=== PATIENT | male | born 1960 ===

== ENCOUNTER 2024-07-13 17:04 | Inpatient (IN) | payer OTHER, SELFPAY ==
[2024-07-13] VITALS (59 sets, daily range): BP systolic 77–155; BP diastolic 50–92; PULSE 48–72; RESP 15–16; TEMP 36.7; O2SAT 92–100
--- NOTE | 2024-07-13 17:00 | DI.CT_ITS ---
Exam(s) CT CHEST/ABD/PEL W CT THORACIC LUMBAR SPINE REC EXAM: CT CHEST/ABD/PEL W CLINICAL HISTORY: trauma, lower back and groin pain w mvmt. TECHNIQUE: Imaging Protocol: Axial computed tomography images with coronal and sagittal reformatted images were created and reviewed. Computer aided detection (CAD) was utilized. Axial, coronal and sagittal images of the thoracic and lumbar spine were reconstructed from the chest abdomen pelvic CT in bone and soft tissue algorithm. CONTRAST MATERIAL: Intravenous: Omnipaque 350 Contrast volume:100 ml Oral: / no COMPARISON: CT CT THORACIC LUMBAR SPINE REC from 07/13/2024 FINDINGS: CHEST: Pulmonary parenchyma: No consolidation. No dominant measurable mass. Tracheobronchial tree: No bronchiectasis. No mucous plugging.No bronchial wall thickening. Pleura: No effusion or pneumothorax. Mediastinum: Within normal limits. Pulmonary arteries: No visible emboli. Cardiovascular: The heart size is normal. There are mild coronary artery calcifications. No pericar dial effusion. Thoracic aorta non-dilated. Bones: Unremarkable for age. No lytic or blastic lesions.No compression fractures. No rib fracture s are identified. Soft tissues: Unremarkable. ABDOMEN and PELVIS: Liver: Normal density. No suspicious mass. Gallbladder and biliary tract: No evidence of stones or wall thickening. No biliary dilatation. Pancreas: Normal density, no abnormal calcifications or inflammatory process. Spleen: Normal. Kidneys: Normal size, contour and axis. No radiodense stones. No obstructive uropathy. No suspicious masses seen. Adrenal glands: No masses seen. Aorta: Abdominal portion non-dilated. Lymph nodes: Within normal limits. Soft tissues: Unremarkable. Bladder: Intact. Moderately distended. No wall thickening. Bowel: No obstruction or bowel wall thickening. Rectal anastomosis is unremarkable. Appendix marek l. Normal quantity of stool. Peritoneal cavity: No ascites. There is a is hematoma seen on the left side of the pelvis as well as inferior to the bladder. The produces a mild mass effect on the left lateral aspect of the bladder. No mesenteric inflammatory response. No free air. Bones: No evidence of lumbar compression fracture. There are fractures of the left transverse proces ses of L4 and L5. There is a vertically oriented nondisplaced fracture through the left sacrum. The re is a nondisplaced fracture of the left junction of the anterior acetabulum with pubic ramus. Ther e is a minimally displaced fracture of the left inferior pubic ramus. Mildly comminuted mildly displ aced fracture of the right inferior pubic ramus. Nondisplaced fracture of the right pubic symphysis. Reproductive organs: Unremarkable for age. IMPRESSION: No acute abnormality in the chest. Nondisplaced fractures of the left sacrum, bilateral ischiopubic rami. The left-sided pubic ramus fr acture extends to near the left acetabulum. Nondisplaced left L4 and L5 transverse process fractures. Moderate hematoma noted at the inferior and left side of the bladder. RADIATION DOSE DELIVERED: Total DLP DATA REPOSITORY: All CT scans at this facility are submitted to the National Radiology Data Registry (NRDR) Dose Index Registry (DIR) with the [employer] ([employer]). RADIATION OPTIMIZATION: All CT scans at this facility use at least one of these dose optimization te chniques: automated exposure control; mA and/or kV adjustment per patient size (includes targeted exa ms where dose is matched to clinical indication); or iterative reconstruction.
--- NOTE | 2024-07-13 17:12 | W.ED.GENAD ---
Discharge Plan Discharge Details Chief Complaint: Orthopedic Admit Date/Time: 07/13/24 21:40 Admit Provider: Alex Dangelo Attending Provider: Alex Dangelo Primary Care Provider: Nan,Local ED Provider: Susanna Barrera Discharge Data Discharge Date/Time-TO BE ENTERED AT DEPARTURE: 07/13/24 22:52 HPI General Date/Time Provider Initiated Documentation: 07/13/24 17:11. HPI Narrative: Domo is a 64 year old male who presents to the emergency department today for evaluation of tailbone/lower back/groin pain after fall. He reports he went over a bump while skiing, this caused him to go up in the air and he landed directly on his tailbone/left side. He denies striking the top half of his body or head during this incident. He is having pain in the groin area with movement of the legs or sitting/standing. No distal numbness/tingling, saddle anesthesia, change in bowel or bladder function, leg weakness, headache, neck pain, back pain, difficulty breathing, nausea/vomiting, upper extremity injury. Past medical history is significant for anticoagulation with baby aspirin daily, has history of heart failure, ASCVD, afib, and HTN. Physical exam remarkable for tenderness with palpation along inner thigh area/pelvis. No obvious instability noted with compression. Pain is elicited with movement of legs, sensation is grossly intact. No pain with compression of pelvis or palpation of pelvis. Easy work of breathing, lung sounds clear bilaterally. Normal heart sounds. He is unable to ambulate due to discomfort. D/dx includes but is not limited to: Fracture, contusion, hematoma, soft tissue injury, solid organ or hollow organ abdominal injury I independently interpreted the following tests: CBC notable for leukocytosis, 15.71. CMP reassuring. UA notable for 40 ketones, no blood. CT abdomen/pelvis performed, nondisplaced fractures of the left sacrum, bilateral pubic rami, and nondisplaced left L4 and L5 transverse process fractures noted. There is also a moderate hematoma noted at the inferior left side of the bladder. Consulted with trauma surgeon at [facility], recommends CT urogram for further evaluation. Discussed case with Dr. Dangelo, orthopedic surgeon at [facility]. As patient does not have blood in his urine, it is appropriate to defer CT to tomorrow, as he has met his 24-hour contrast load. Patient to be admitted to orthopedic surgery with consults as needed. While in the emergency department, Domo received fentanyl for pain control. Patient is agreeable with plan of care for admission to hospital. Related Data Home Medications ?Medication ?Instructions ?Recorded ?Confirmed aspirin 81 mg capsule 81 mg PO HS 07/13/24 07/13/24 atorvastatin 20 mg tablet 20 mg PO QHS 07/13/24 07/13/24 famotidine 20 mg tablet (Pepcid) 20 mg PO BID 07/13/24 07/13/24 flecainide 50 mg PO BID 07/13/24 07/13/24 losartan 25 mg PO HS 07/13/24 07/13/24 montelukast 10 mg PO HS 07/13/24 07/13/24 Allergies Allergy/AdvReac Type Severity Reaction Status Date / Time erythromycin base AdvReac Intermediate Other (See Verified 07/13/24 17:55 Comment) General Stated Complaint: Orthopedic AARON: 3 Review of Systems Narrative: See HPI Exam Const General: cooperative, no acute distress, well developed and well groomed Nutritional Appearance: average body habitus and well nourished Orientation: alert and oriented x3 HENMT Head: normal to inspection, no palpable skull fracture, normocephalic, atraumatic, no Soto's sign, no raccoon eyes and No periorbital ecchymosis Ears: hearing grossly normal bilaterally General nose exam: external nose normal Face and sinus: normal facial exam Mouth: oral mucosae normal Teeth and gingiva: dentition normal Throat: posterior oropharynx normal Eyes General: appearance normal, both eyes and all related structures Neck Neck: normal visual inspection, full ROM, no lymphadenopathy and trachea midline Chest Chest: normal inspection of the chest and normal palpation of entire chest wall Resp Effort & Inspection: normal respiratory effort and able to speak in complete sentences Auscultation: clear to auscultation bilaterally Cardio Rate: regular rate Rhythm: regular rhythm Pulses: dorsalis pedis present GI Inspection: normal to inspection, no abdominal wall ecchymosis and non-distended Palpation: soft, not firm and nontender Back/Spine/Pelvis Back: no CVA tenderness Cervical Spine: normal cervical lordosis and cervical ROM normal Thoracic/Lumbar Spine: thoracic and lumbar spine normal to inspection Skin General skin exam: no rashes or lesions noted Neuro General: patient alert, patient oriented x3, tone normal, moves all extremities and no focal motor deficits Cognition: normal cognition Speech: speech normal Gait: other (Unable to ambulate due to pain) Motor: muscle tone normal throughout and strength 5/5 throughout Sensory Exam: no sensory deficits noted Extrem Right upper extremity: normal to inspection and full ROM Left upper extremity: normal to inspection and full ROM Right lower extremity: hip/thigh Details: abnormal ROM (decreased ROM due to pain) Details: held in an abnormal fashion Details: in extension Left lower extremity: hip/thigh Details: abnormal ROM (Decreased ROM due to pain) Details: held in an abnormal fashion Details: in extension Course Vital Signs Vital signs: Vital Signs Temperature 36.7 C 07/13/24 17:04 Pulse 52 L 07/13/24 17:04 Respiratory Rate 15 07/13/24 17:04 Blood Pressure 149/77 H 07/13/24 17:04 Pulse Oximetry 96 07/13/24 17:04 Temperature 36.7 C 07/13/24 17:04 Pulse 52 L 07/13/24 17:04 Respiratory Rate 15 07/13/24 17:04 Blood Pressure 149/77 H 07/13/24 17:04 Blood Pressure Position Sitting 07/13/24 17:04 Pulse Oximetry 96 07/13/24 17:04 Oxygen Delivery Method Room Air 07/13/24 17:04 Oxygen Flow Rate 0 07/13/24 17:04 Medical Decision Making Imaging Data Radiologic Study: Radiologist's impression: Exam(s) CT CHEST/ABD/PEL W CT THORACIC LUMBAR SPINE REC EXAM: CT CHEST/ABD/PEL W CLINICAL HISTORY: trauma, lower back and groin pain w mvmt. TECHNIQUE: Imaging Protocol: Axial computed tomography images with coronal and sagittal reformatted images were created and reviewed. Computer aided detection (CAD) was utilized. Axial, coronal and sagittal images of the thoracic and lumbar spine were reconstructed from the chest abdomen pelvic CT in bone and soft tissue algorithm. CONTRAST MATERIAL: Intravenous: Omnipaque 350 Contrast volume:100 ml Oral: / no COMPARISON: CT CT THORACIC LUMBAR SPINE REC from 07/13/2024 FINDINGS: CHEST: Pulmonary parenchyma: No consolidation. No dominant measurable mass. Tracheobronchial tree: No bronchiectasis. No mucous plugging.No bronchial wall thickening. Pleura: No effusion or pneumothorax. Mediastinum: Within normal limits. Pulmonary arteries: No visible emboli. Cardiovascular: The heart size is normal. There are mild coronary artery calcifications. No pericardial effusion. Thoracic aorta non-dilated. Bones: Unremarkable for age. No lytic or blastic lesions.No compression fractures. No rib fractures are identified. Soft tissues: Unremarkable. ABDOMEN and PELVIS: Liver: Normal density. No suspicious mass. Gallbladder and biliary tract: No evidence of stones or wall thickening. No biliary dilatation. Pancreas: Normal density, no abnormal calcifications or inflammatory process. Spleen: Normal. Kidneys: Normal size, contour and axis. No radiodense stones. No obstructive uropathy. No suspicious masses seen. Adrenal glands: No masses seen. Aorta: Abdominal portion non-dilated. Lymph nodes: Within normal limits. Soft tissues: Unremarkable. Bladder: Intact. Moderately distended. No wall thickening. Bowel: No obstruction or bowel wall thickening. Rectal anastomosis is unremarkable. Appendix normal. Normal quantity of stool. Peritoneal cavity: No ascites. There is a is hematoma seen on the left side of the pelvis as well as inferior to the bladder. The produces a mild mass effect on the left lateral aspect of the bladder. No mesenteric inflammatory response. No free air. Bones: No evidence of lumbar compression fracture. There are fractures of the left transverse processes of L4 and L5. There is a vertically oriented nondisplaced fracture through the left sacrum. There is a nondisplaced fracture of the left junction of the anterior acetabulum with pubic ramus. There is a minimally displaced fracture of the left inferior pubic ramus. Mildly comminuted mildly displaced fracture of the right inferior pubic ramus. Nondisplaced fracture of the right pubic symphysis. Reproductive organs: Unremarkable for age. IMPRESSION: No acute abnormality in the chest. Nondisplaced fractures of the left sacrum, bilateral ischiopubic rami. The left-sided pubic ramus fracture extends to near the left acetabulum. Nondisplaced left L4 and L5 transverse process fractures. Moderate hematoma noted at the inferior and left side of the bladder. Quality:[facility] Related Social Needs: No Data to Display [facility] Social History Smoking/Tobacco Use Status: Never Smoking risk assessment performed?: Yes Alcohol Intake: current Alcohol Intake frequency: a few times a month Drug use: Never Substance use type: does not use Do you feel safe at home: Yes Do you feel safe in your relationship?: Yes
[2024-07-13 17:51] LABS: HCT 42.3 % (40.0-50.0); HGB 13.9 g/dL (13.5-17.5); MCH 31.1 pg (27.0-33.0); MCHC 32.9 % (32.0-36.0); MCV 95 fL (80-95); MPV 9.6 fL (8.0-11.0); Platelet Count 249 10^3/uL (130-400); RBC 4.47 10^6/uL (4.36-5.78); RDW 12.6 % (11.8-14.1); RDW-SD 43.7 fL; WBC 15.71 10^3/uL (4.4-10.8)
[2024-07-13 18:07] LABS: ALT 32 U/L (16-63); AST 24 U/L (15-37); Albumin 3.4 g/dL (3.4-5.0); Alkaline Phosphatase 67 U/L (46-116); Anion Gap 7.4 mmol/L (3-11); BUN 14 mg/dL (7-18); Bilirubin, Total 0.69 mg/dL (0.2-1.0); CO2 28.6 mmol/L (21.0-32.0); CREATININE 0.9 mg/dL (0.70-1.30); Calcium 8.5 mg/dL (8.5-10.1); Chloride 107 mmol/L (98-107); Estimated GFR 96.57 (mL/min/1.73m2); Glucose 112 mg/dL (74-106); Potassium 3.8 mmol/L (3.5-5.1); Sodium 143 mmol/L (136-145); Total Protein 6.5 g/dL (6.4-8.2)
[2024-07-13] MEDS: Normal Saline - Diluent 50 ML VIAL IJ (18:07)
[2024-07-13] MEDS: Omnipaque 350 MG/ML 100 ML BTL IJ (18:08)
[2024-07-13] MEDS: fentaNYL 100 MCG/2 ML VIAL 50 MCG IVP (18:37)
[2024-07-13] MEDS: Normal Saline 500 ML IV (19:15)
[2024-07-13 22:15] LABS: Bilirubin Negative (Negative); Blood Negative (Negative); Clarity Clear (Clear); Glucose Negative (Negative); Ketones 40 mg/dL (Negative); Leukocyte Esterase Negative (Negative); Nitrite Negative (Negative); Urobilinogen 0.2 mg/dL (Up to 0.2)
--- NOTE | 2024-07-13 22:18 | W.PC.ACHO ---
Registration Status: Primary Language: Preferred Language: ED Information & Data Chief Complaint Orthopedic 07/13/24 17:53 Chief Complaint Orthopedic 07/13/24 17:15 Other Complaint Nk/Back Pain 07/13/24 17:04 Triage Note Pain in tailbone after 07/13/24 17:04 falling onto it while skiing . Pain when sitting and standing. No neurological changes in legs. Most Recent Vital Signs Temperature 36.7 C 07/13/24 17:04 Pulse 61 07/13/24 21:50 Respiratory Rate 15 07/13/24 17:04 Blood Pressure 136/84 07/13/24 21:46 Blood Pressure Mean 101 07/13/24 21:46 Blood Pressure Position Sitting 07/13/24 17:04 Pulse Oximetry 100 07/13/24 21:50 Oxygen Delivery Method Room Air 07/13/24 17:04 Oxygen Flow Rate 0 07/13/24 17:04 Pain Level 4 07/13/24 18:37 Allergies erythromycin base Adverse Reaction (Intermediate, Verified 07/13/24 17:55) Other (See Comment) GI upset Precautions Isolation Standard precaution 07/13/24 17:53 Active Medications Generic Name Dose Route Start Last Admin Trade Name Freq PRN Reason Stop Dose Admin Iohexol 100 ml 07/13/24 18:15 07/13/24 18:08 Omnipaque 350 Mg/Ml 100 Ml Btl IJ 08/12/24 23:59 100 ml DIRECTED CHELSY Administration Sodium Chloride 50 ml 07/13/24 18:15 07/13/24 18:07 Normal Saline - Diluent 50 Ml Vial IJ 50 ml .FOR DI USE CHELSY Administration IV IV Catheter Type [Right Saline Lock Antecubital] IV Catheter Gauge [Right 20 Antecubital] Diagnostics 07/13/24 07/13/24 Range/Units 22:08 17:45 WBC 15.71 H (4.4-10.8) 10^3/uL RBC 4.47 (4.36-5.78) 10^6/uL Hgb 13.9 (13.5-17.5) g/dL Hct 42.3 (40.0-50.0) % MCV 95 (80-95) fL MCH 31.1 (27.0-33.0) pg MCHC 32.9 (32.0-36.0) % RDW 12.6 (11.8-14.1) % Plt Count 249 (130-400) 10^3/uL MPV 9.6 (8.0-11.0) fL Sodium 143 (136-145) mmol/L Potassium 3.8 (3.5-5.1) mmol/L Chloride 107 (98-107) mmol/L Carbon Dioxide 28.6 (21.0-32.0) mmol/L Anion Gap 7.4 (3-11) mmol/L BUN 14 (7-18) mg/dL Creatinine 0.9 (0.70-1.30) mg/dL Est GFR (CKD-EPI 2020) 96.57 (mL/min/1.73m2) Glucose 112 H (74-106) mg/dL Calcium 8.5 (8.5-10.1) mg/dL Total Bilirubin 0.69 (0.2-1.0) mg/dL AST 24 (15-37) U/L ALT 32 (16-63) U/L Alkaline Phosphatase 67 (46-116) U/L Total Protein 6.5 (6.4-8.2) g/dL Albumin 3.4 (3.4-5.0) g/dL Urine Color Pending Urine Clarity Pending Urine pH Pending Ur Specific [place] Pending Urine Protein Pending Urine Ketones Pending Urine Blood Pending Urine Nitrite Pending Urine Bilirubin Pending Urine Urobilinogen Pending Ur Leukocyte Esterase Pending Urine Glucose Pending Intake and Output - 24 Hour Total 07/13/24 17:01 thru 07/13/24 19:52 Intake Total 510 Balance 510 Weight 200 lb Intake: IV 510 Falls Risk Assessment History of Falls Admit Due to Fall 07/13/24 17:53 Contributing Factors No Factors 07/13/24 17:53 Ambulatory Aids Independent 07/13/24 17:53 Tubes/Lines With any additional score 07/13/24 17:53 Gait Evaluation W/any additional score 07/13/24 17:53 Cognition No cognitive impairment 07/13/24 17:53 Fall Total Score 65 07/13/24 17:53 Level of Risk High Risk 07/13/24 17:53 v v v v v v v v v Sending and/or Receiving Nurses: Please use comment section below to note any information pertinent to the patient hand-off not included above. Information / Comments: pt brought in by ambulance, skiing accident on rough trail-airborne, landed on left side. FX of sacrum, L4/L5 transverse process, hematoma. Got fentanyl in ED, did not like it and does not want it again. PRN oxy and dilaudid. Needs UA. VSS. HX AFib Report received from: Rodrigue Mcallister
[2024-07-13] MEDS: oxyCODONE 5 MG TAB PO (22:23)
[2024-07-13] MEDS: Lactated Ringers 1,000 ML 1000 ML IV (23:06)
[2024-07-13] MEDS: Normal Saline Flush 10 ML SYR (23:16)
[2024-07-14] VITALS (8 sets, daily range): BP systolic 99–131; BP diastolic 60–86; PULSE 58–65; RESP 14–19; TEMP 35.5–37.6; O2SAT 95–99
[2024-07-14] MEDS: Ketorolac 15 MG/ML VIAL IVP ×4 (00:12→23:46)
[2024-07-14] MEDS: Normal Saline Flush 10 ML SYR ×2 (00:13→08:26)
[2024-07-14] MEDS: Losartan 25 MG TAB PO ×2 (01:28→20:14)
[2024-07-14] MEDS: Atorvastatin 20 MG TAB PO ×2 (01:28→20:15)
[2024-07-14] MEDS: Aspirin 81 MG CHEW PO ×2 (01:29→20:14)
[2024-07-14] MEDS: Montelukast 10 MG TAB PO ×2 (01:29→20:14)
[2024-07-14] MEDS: Famotidine 20 MG TAB PO ×3 (01:29→20:14)
[2024-07-14] MEDS: oxyCODONE 5 MG TAB PO ×4 (01:35→23:45)
--- NOTE | 2024-07-14 05:09 | W.ORTHOCONSU ---
History of Present Illness History of Present Illness Chief Complaint: Ski Trauma Narrative: Apolinar is a 64-year-old who was skiing today. He went over a bump and went to the air. He landed awkwardly onto his buttock and left side with immediate pain and difficulty weightbearing. He is brought in by EMS services to the emergency department. He was unable to sit up unassisted and unable to mobilize. He reported pain about his pelvis but also into the medial aspect the left thigh. He denies numbness or tingling. He denies head trauma. He has been able to void on multiple occasions since arriving in the emergency department. Urinalysis did not show any blood. Consults Consult date: 07/13/24 Requesting physician: Susanna Damon Consult Reason Trauma with multiple pelvic fractures Assessment and Plan Assessment and plan (1) Fracture of transverse process of lumbar vertebra: Status: Acute (2) Fracture of sacrum: Status: Acute (3) Bilateral fracture of pubic rami: Status: Acute Assessment and plan: Apolinar is a 64-year-old male who suffered trauma while skiing today which resulted in multiple fractures. While there are bilateral pubic rami fractures he did land on the left side with the left sided sacral fracture which I think makes this most consistent with a lateral compression type I injury. I do not see any signs of diastases of the SI joint or incongruity of the pubic symphysis to suggest his unstable injury. However, given the mechanism of injury and the involvement of inferior superior pubic rami on both sides coupled with sacral ala fracture and the transverse process fractures, this has a chance to be less stable than expected for typical LC1 type injury. He did have a hematoma around the inferior and left side of the bladder adjacent to the pubis but he is able to urinate without difficulty and without blood. Serial hemoglobin can be checked. We will attempt mobilization and pain control. If he is unable to mobilize despite adequate pain control, then pelvic stabilization may need to be considered at a tertiary center. Initial attempts at transfer were declined due to capacity issues and therefore we will manage as much as we can here. I would recommend we start with elevating the head of bed first to 45 degrees and up to 60 degrees as tolerated. We should use oral medications as much as possible to minimize his pain. Physical therapy should work on sitting and then ambulating, at least mobilizing to a chair. This may take a few days to work on mobilization with adequate pain control but these injuries should be stable and tolerate a nonoperative protocol. If he is unable to mobilize me will reach out to tertiary center at that time. Review of Systems All systems reviewed & are unremarkable except as noted in HPI and below PFSH All Active Problems (Updated 07/14/24 @ 05:29 by Alex Dangelo MD) Fracture of transverse process of lumbar vertebra (Acute) Left L4, L5 Fracture of sacrum (Acute) Bilateral fracture of pubic rami (Acute) Hematoma (Acute) Closed fracture of transverse process of lumbar vertebra (Acute) Multiple pelvic fractures (Acute) Medical History GERD (gastroesophageal reflux disease) Hyperlipidemia Atrial fibrillation Social History Smoking/Tobacco Use Status: Never Smoking risk assessment performed?: Yes Alcohol Intake: current Alcohol Intake frequency: a few times a month Drug use: Never Substance use type: does not use Housing: house Do you feel safe at home: Yes Do you feel safe in your relationship?: Yes Exam Const General: cooperative, healthy appearing, comfortable, no acute distress, well developed and well groomed Nutritional Appearance: average body habitus Orientation: alert, awake and oriented x3 HENMT Head: normal to inspection, normocephalic and atraumatic Neck Neck: normal visual inspection, full ROM and supple Resp Effort & Inspection: normal respiratory effort, able to speak in complete sentences and no respiratory distress Back/Spine/Pelvis Cervical Spine: cervical ROM normal and No pain with cervical ROM Thoracic/Lumbar Spine: thoracic and lumbar spine normal to inspection and paraspinal tenderness (lower lumbar segments, left side) Pelvis: pain with lateral compression Sacrum: tenderness on the left Neuro Motor: strength 5/5 throughout (limited proximally in lower extremities by pain) Sensory Exam: no sensory deficits noted Results Last Vital Signs Temp 37.0 C 07/14/24 03:27 Pulse 64 07/14/24 03:27 Resp 19 07/14/24 03:27 BP 112/60 07/14/24 03:27 Pulse Ox 95 07/14/24 03:27 Labs 07/14/24 06:35 07/13/24 17:45 Labs: Laboratory Results - last 24 hr 07/13/24 07/13/24 17:45 20:10 WBC 15.71 H RBC 4.47 Hgb 13.9 Hct 42.3 MCV 95 MCH 31.1 MCHC 32.9 RDW 12.6 Plt Count 249 MPV 9.6 Sodium 143 Potassium 3.8 Chloride 107 Carbon Dioxide 28.6 Anion Gap 7.4 BUN 14 Creatinine 0.9 Est GFR (CKD-EPI 2020) 96.57 Glucose 112 H Calcium 8.5 Total Bilirubin 0.69 AST 24 ALT 32 Alkaline Phosphatase 67 Total Protein 6.5 Albumin 3.4 Urine Color Yellow Urine Clarity Clear Urine pH 6.0 Ur Specific [place] 1.010 Urine Protein Negative Urine Ketones 40 H Urine Blood Negative Urine Nitrite Negative Urine Bilirubin Negative Urine Urobilinogen 0.2 Ur Leukocyte Esterase Negative Urine Glucose Negative Imaging Imaging Studies: CT scan of the chest abdomen pelvis including spinal reconstructions shows no intrathoracic abnormality. There are multiple fractures about the pelvis and lower lumbar spine. There is nondisplaced fractures of the left L4 and L5 transverse processes. There is a slightly comminuted fracture about the left-sided pubic root near the anterior acetabulum with a minimally displaced fracture of the midportion of the inferior ramus on the left side. There are fractures of the superior and inferior pubic ramus on the right side. There is also a mildly comminuted fracture of the left sacrum but without significant displacement. There is no incongruity of the sacroiliac joints. There is no significant incongruity of the pubic symphysis. On the axial CT scans there is no apparent posterior anterior widening of the SI joint. There is blood seen around the inferior left side of the bladder adjacent to the anterior ring of the pelvis. No free air.
[2024-07-14 07:13] LABS: HCT 34.9 % (40.0-50.0); HGB 11.5 g/dL (13.5-17.5); MCH 31.2 pg (27.0-33.0); MCV 95 fL (80-95); Platelet Count 192 10^3/uL (130-400); RBC 3.69 10^6/uL (4.36-5.78); RDW 12.9 % (11.8-14.1); RDW-SD 44.7 fL; WBC 8.63 10^3/uL (4.4-10.8)
[2024-07-14 07:34] LABS: Anion Gap 9.6 mmol/L (3-11); BUN 13 mg/dL (7-18); CO2 26.4 mmol/L (21.0-32.0); Calcium 7.9 mg/dL (8.5-10.1); Chloride 106 mmol/L (98-107); Glucose 158 mg/dL (74-106); Potassium 3.6 mmol/L (3.5-5.1); Sodium 142 mmol/L (136-145)
[2024-07-14] MEDS: Acetaminophen 500 MG TAB 1000 MG PO ×3 (08:25→20:14)
--- NOTE | 2024-07-14 09:17 | INITIAL_ITS ---
Date of service: 07/14/24 Time of Service: 09:17 Care Management Initial Assmt Initial Assessment Reason for Hospitalization: pelvic fractures secondary to trauma Functional Status/Living Situation Patient Presentation: Apolinar was lying in bed when CM met with him. He was pleasant in interaction and engaged easily with CM. Apolinar had a skiing accident yesterday and fractured his pelvis. He shared that he does not have a lot of pain when he is in bed but he does when he tries to move or ambulate. His pain has been controlled with scheduled Ketorolac and PO Oxycodone. Apolinar is from [place], [place]. 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 Apolinar has 2 children who live close to him. When asked if the family is close, Apolinar responded reasonably. Apolinar does not receive any services and is independent in the community. Town of Residence: [place], [place] Resides with: Alone Significant Other/Family: Local (local to [facility]) Employment Status: Employed Instrumental Activities of Daily Living (ADLs): Independent Medications Medication Management: No Issues/Barriers identified Physical Functioning/Mobility Assistive Device: none at baseline needs a walker as a result of this injury Advance Directives Advance Directives: Do you have an Advance Directive: N 07/13/24 18:03 AD On File at [facility]: N 07/13/24 18:03 Date Asked 07/13/24 07/13/24 18:03 AD Date Reviewed COLST On File at [facility] COLST Date Scanned Code Status Resuscitation Status Full Code Portal Pt does not currently have a portal and education provided: No Portal Education: Other (lives out of state) Insurance Coverage/Financial Issues Insurance: Diversified Administration Care Team Visit Care Team Role Provider Type Local No Primary Care Provider NON-[facility] STAFF PHYSICIAN InPatient Mickey Delarosa Other Providers OTHER Susanna Damon Emergency Provider NURSE PRACTITIONER Alex Dangelo MD Admit Provider [facility] STAFF PHYSICIAN Attending Provider Discharge Potential Discharge Needs: Surgical F/U Appt Anticipated Barriers to Discharge: Medical Status Patient/Family Education Needs: Review discharge instructions, discuss Ask Me Three Transportation: Private vehicle Plan: Anticipate Apolinar will be discharged home with no new services. He will follow up with his community providers and transport via private vehicle with a friend. CM will follow and assess for discharge needs. Social Determinants of Health Screening Social Determinants of Health last assessed: 07/14/24 Will the Patient Participate in the Screening?: Yes Do you worry about having a steady place to live?: no Problems where you live: no known problems In the past 12 months, have you had to go without electric, gas, oil or water in your home?: no Have you or anyone in your house had to go without enough food to eat?: no Has lack of transportation kept you from medical appointments or from doing things needed for daily living?: no Has anyone in your life made you feel unsafe or unsupported?: no How hard is it for you to pay for the very basics like food, housing, medical care, and heating? Would you say it is:: Not hard at all Do you want help finding or keeping work or a job?: I do not need or want help If for any reason you need help with day-to-day activities such as bathing, preparing meals, shopping, managing finances, etc., do you get the help you need?: I don?t need any help How often do you feel lonely or isolated from those around you?: Never Do you speak a language other than Rwandan at home?: No Does the patient want assistance with any of the above?: No PFSH All Active Problems (Updated 07/14/24 @ 05:29 by Alex Dangelo MD) Fracture of transverse process of lumbar vertebra (Acute) Left L4, L5 Fracture of sacrum (Acute) Bilateral fracture of pubic rami (Acute) Hematoma (Acute) Closed fracture of transverse process of lumbar vertebra (Acute) Multiple pelvic fractures (Acute) Medical History GERD (gastroesophageal reflux disease) Hyperlipidemia Atrial fibrillation Social History Smoking/Tobacco Use Status: Never Smoking risk assessment performed?: Yes Alcohol Intake: current Alcohol Intake frequency: a few times a month Drug use: Never Substance use type: does not use Housing: house Do you feel safe at home: Yes Do you feel safe in your relationship?: Yes
--- NOTE | 2024-07-14 10:40 | IN_ITS ---
PT Notes Visit Reasons: Trauma - Pelvic Fractures Physical Therapy Inpatient Initial Evaluation Date: 07/14/2024 Referring Doctor: Alex Dangelo MD PT Orders: PT CONSULT: Safety consult for D/C. Bilateral pelvic fractures, sacral fractures, WBAT with walker Precautions: Fall. Standard. WBAT on B LE with AD. Patient Profile/Admitting Diagnosis: Patient presented to the ED on 07/13/2024 due to low back, tailbone, and groin pain sustained from a skiing accident. CT scan of of the chest/abdomen and pelvis showed fractures of the left transverse processes of L4 and L5; vertically oriented non-displaced fracture through the left sacrum; non- displaced fracture of the left junction of the anterior acetabulum with pubic ramus.; minimally displaced fracture of the left inferior pubic ramus; mildly comminuted mildly displaced fracture of the right inferior pubic ramus; non- displaced fracture of the right pubic symphysis. Dr. Dangelo was consulted and ordered mobilization as tolerated with WBAT on B LE using FWW. PMHX: Unremarkable Social History/Home Situation: Independent with all aspects of ADLs without any assistive devices prior to admission. Equipment Owned/DME: None previously Subjective: Pain shot up to 8-9/10 with weight bearing during short walk from L side of bed to the bedside chair with walker. Denied headache, chest pain nad lightheadedness throughout session. Objective: General Observation: Movement highly guarded because of pain in pelvis. Mental Status: Alert and oriented as to person, place, time, and purpose. Able to pay attention, focus, and respond appropriately. Pain: 6-9/10 with movement and weight bearing Vital Signs: Closley monitored by nursing staff ROM: Right Lower Extremity: Hip flexion up to 90 degrees with heel slide while in supine. Hip abduction about 10 degrees. Knee flexion up to 80 degrees with heel slide in supine. Ankle dorsiflexion WFL. Ankle plantarflexion WFL. Movement increased pain to 7-8/10 at hip and pelvic areas. Left Lower Extremity: Hip flexion up to 90 degrees with heel slide while in supine. Hip abduction about 10 degrees. Knee flexion up to 80 degrees with heel slide in supine. Ankle dorsiflexion WFL. Ankle plantarflexion WFL. Movement increased pain to 7-8/10 at hip and pelvic areas. Strength: Right Lower Extremity: Hip flexors 3-/5. Hip abductors 3-/5. Knee flexors 3-/5. Knee extensors 3-/5. Ankle dorsiflexors 4-/5. Ankle plantarflexors 4-/5. Left Lower Extremity: Hip flexors 3-/5. Hip abductors 3-/5. Knee flexors 3-/5. Knee extensors 3-/5. Ankle dorsiflexors 4-/5. Ankle plantarflexors 4-/5. Bed Mobility/Transfers: Moderate cueing provided for use of B hands as needed for support, movement sequence, AD management, and posture to reduce fall risk and minimize pain report Rolling with minimal assist L sidelying to sit minimal assist of 2 Stand to sit with contact guard assist of 2 Bed to chair minimal assist of 1 and stand by assist of another for safety Gait: Unable to lift either foot to advance forward. Able to slide foot ever so slow ly each time from left side of bed to his bed side chair on the other side. Balance: Static Sitting: Fair Dynamic Sitting: Fair Static Standing: Fair Dynamic Standing: Fair Special Tests: Mobility Limitations Standardized Measure [facility] AM-PAC 6 clicks Basic Mobility Inpatient Short Form: Raw Score: 11 CMS Score: 72% deficit Informed Consent/Education: Patient was instructed in purpose of PT consult and plan of care. Agreeable to proceed with established PT POC to achieve personal goals. ASSESSMENT: Patient was very much limited by pain but with pre-medication, increase of head of bed to at least 45 degrees, and with use of side rail patient was able to slowly move from edge of bed and walk to bedside chair with pain report as high as 8-9/10 every time he tried to lift each extremity forward. Patient was able to slowly slide each foot forward and us the walker to minimize loading onto low back and pelvis. Sitting tolerance limited at this time, unsure if patient can tolerate the drive back to [place] without undue pain. Patient was fitted and provided with walker for room use. Will process walker to take home once discharge is ready. Patient presents with clinical signs and symptoms consistent with current/admitting diagnoses that have resulted to mobility limitations, gait instability, generalized weakness, and overall ADL decline as demonstrated by the following impairment level findings: 1. Decreased strength to B hips and knees major muscle groups 2. Impaired sitting/standing balance 3. Impaired activity tolerance 4. Limitation of joint range of motion in B hips 5. Pain in low back, B hips and pelvis Impairments are contributing to the following functional limitations: 1. Decline in bed mobility skills 2. Decline in transfer skills 3. Difficulty with ambulation without assistive device and physical assistance 4. Increased completion time for mobility ADL performance 5. Increased risk for falls 6. Difficulty with managing steps alone safely Patient is assessed as a 48776 moderate complexity based on the following: History: 64-year-old male with past medical history as indicated above Examination: Demonstrable impairment in strength, balance, and mobility level with underlying impairments and functional limitations as exhibited above as well as deficit score of 72% utilizing the [facility] Mobility Inpatient Short Form Presentation: Evolving Decision Makin moderate complexity Goals: Goals X1 week 1. Supine-Sit independent 2. Sit-Supine independent 3. Sit-Stand independent 4. Stand-Sit independent with FWW 5. Bed-Chair independent with FWW 6. Chair-Bed independent with FWW 7. Independent gait on level surface with use of FWW for at least 150 feet without report of pain nor dyspnea 8. Independent stair negotiation while holding onto B rails for at least 5 steps without report of pain nor dyspnea 9. Independent with home exercise program 10. Good static and dynamic standing balance/tolerance Plan of Care/Treatment Plan: 1-2x/day, 7 days/week x 1 week. Plan of care has been reviewed with the INDIAN TRADER providing the service under Physical Therapy direction. Initiate Physical Therapy intervention for pain management as needed, strengthening, bed mobility, transfers, gait, stairs, balance training, and use of assistive device. --Pre-medicate for pain for all sessions, coordinate with nurse DISCHARGE RECOMMENDATIONS: [] Home with no services [] [] Home with services [specify] [] Home with outpatient PT [] [] SNF for continued rehabilitation [] [] Heat Treatment Technician Care [] [] SNF versus LTC based on ability to participate and progress [] [X] Short-term term SNF vs PT based on progress towards goals TREATMENT CODE/TIME: 10155 x 20 minutes for 1 unit, 73140 x 29 minutes for 2 units (10:40-11:29). Thank you for the opportunity to participate in the care of this patient. Elisa Castro PT, DPT, CLT [facility] [place], [place]
--- NOTE | 2024-07-14 13:44 | PHA.REVIEW2 ---
Pharmacy Admission Review Admission Clinical Review Admission Pharmacy Review: Fracture of transverse process of lumbar vertebra (Acute) Fracture of sacrum (Acute) Bilateral fracture of pubic rami (Acute) Hematoma (Acute) Closed fracture of transverse process of lumbar vertebra (Acute) Multiple pelvic fractures (Acute) erythromycin base Adverse Reaction (Intermediate, Verified 07/13/24 17:55) Other (See Comment) Resuscitation Status Full Code Height 5 ft 10 in Weight 96.6 kg Pharmacy Admission Review Renal Dosing Renal Dosing: BUN 13 mg/dL (7-18) 07/14/24 06:35 Creatinine 1.0 mg/dL (0.70-1.30) 07/14/24 06:35 Medications needing adjustments: Reviewed (CrCl 89.3 ml/min) List of meds needing interventions: Current medications are okay Anticoagulation Anticoagulation: Hgb 11.5 g/dL (13.5-17.5) L D 07/14/24 06:35 Hct 34.9 % (40.0-50.0) L 07/14/24 06:35 Plt Count 192 10^3/uL (130-400) 07/14/24 06:35 Creatinine 1.0 mg/dL (0.70-1.30) 07/14/24 06:35 DVT Prophylaxis: Reviewed (none at this time - per provider patient had hematoma in pelvis but is rechecking Hgb at 1600) Opiate Usage Evaluate Pain Scale/Pains Meds: Reviewed (hydromorphone 1mg IVP PRN - no doses given and oxycodone 5-10mg PO q3h PRN - 25mg / 24 hrs) Scheduled Bowel Reg ordered if on Opiates?: No (PRN docusate) Relevant Labs Relevant Labs: Sodium 142 mmol/L (136-145) 07/14/24 06:35 Potassium 3.6 mmol/L (3.5-5.1) 07/14/24 06:35 Chloride 106 mmol/L (98-107) 07/14/24 06:35 Electrolytes, C-Reactive P, ESR: Reviewed Cardiac Review BP, HR, EF%: Reviewed (BP WNL, HR 58) List meds needing interventions: Has order for flecainide 50mg BID and losartan 25mg daily QTc Review QTc: Reviewed (No EKG on file) IV to PO Switch IV Medications: Reviewed (hydromorphone and ketorolac) Home Meds Home Med List reviewed: Reviewed Current Meds Current Medication Order Review: Intervened Comments: Added IV admission order set
[2024-07-14 16:04] LABS: HGB 12.1 g/dL (13.5-17.5)
--- NOTE | 2024-07-14 16:34 | PTTR_ITS ---
PT Notes Visit Reasons: Trauma - Pelvic Fractures Physical Therapy Inpatient Treatment Note Date: 07/14/2024 Precautions: Fall. Standard. WBAT on B LE with AD. Subjective: Pain shot up to 6-7/10 with weight bearing during short walk from L side of bed to the bedside chair with walker. Denied headache, chest pain nad li ghtheadedness throughout session. Objective: General Observation: Movement highly guarded because of pain in pelvis. Mental Status: Alert and oriented as to person, place, time, and purpose. Able to pay attention, focus, and respond appropriately. Pain: 6-9/10 with movement and weight bearing Vital Signs: Closley monitored by nursing staff Bed Mobility/Transfers: Moderate cueing provided for use of B hands as needed for support, movement sequence, AD management, and posture to reduce fall risk and minimize pain report R sidelying to sit moderate assist Stand to sit with contact guard assist Bed to chair minimal assist using FWW Gait: Unable to lift either foot to advance forward. Able to slide foot ever so slowly each time from right side of bed to bed side chair. Backing up appeared easier. Pain tolerable throughout. Balance: Static Sitting: Fair Dynamic Sitting: Fair Static Standing: Fair Dynamic Standing: Fair THERA EX: Initiated isometric exercises for gluteal and quads muscles prior to both attempts at moving out of bed, 5sh x 10 to minimize muscle guarding Worked on slow posterior pelvic tilting x while in supine to relax B hams ASSESSMENT: Patient was given with 5 mg Oxycodone for this session as the 10 mg given for PT morning session caused his blood pressure to go soft after he was done with PT session. Patient appeared to be more able to move the R LE better compared to this morning and still was very guarded with moving L LE as hip flexion in antigravity position/upright was still very limited due to pain. Patient was very much limited by pain but with pre-medication, increase of head of bed to at least 45 degrees, and with use of side rail patient was able to slowly move from edge of bed and walk to bedside chair with pain report as high as 8-9/10 every time he tried to lift each extremity forward. Patient was able to slowly slide each foot forward and us the walker to minimize loading onto low back and pelvis. Sitting tolerance limited at this time, unsure if patient can tolerate the drive back to [place] without undue pain. Patient was fitted and provided with walker for room use. Will process walker to take home once discharge is ready. Plan of Care/Treatment Plan: 1-2x/day, 7 days/week x 1 week. Plan of care has been reviewed with the CERAMIC RESEARCH ENGINEER providing the service under Physical Therapy direction. Initiate Physical Therapy intervention for pain management as needed, strengthening, bed mobility, transfers, gait, stairs, balance training, and use of assistive device. --Pre-medicate for pain for all sessions, coordinate with nurse DISCHARGE RECOMMENDATIONS: [] Home with no services [] [] Home with services [specify] [] Home with outpatient PT [] [] SNF for continued rehabilitation [] [] Kettle Skimmer Care [] [] SNF versus LTC based on ability to participate and progress [] [X] Short-term term SNF vs PT based on progress towards goals TREATMENT CODE/TIME: 75673 x 25 minutes for 2 units (15:45-16:10).
[2024-07-14] MEDS: Normal Saline Flush 10 ML SYR IVP (20:18)
--- NOTE | 2024-07-15 | DI.RAD_ITS ---
Exam(s) XR PELVIS W OBLIQUES 3V EXAM: XR PELVIS W OBLIQUES 3V CLINICAL HISTORY: evaluate post-mobilization. TECHNIQUE: 2D digital imaging was performed. COMPARISON: CT CT CHEST/ABD/PEL W from 07/13/2024 FINDINGS: 3 views Again noted are the fractures of the bilateral superior and inferior pubic rami, as seen on recent CT scan. On the left side the fracture extends to the level of the acetabulum. There is also a nondisplaced fractures seen in the superior aspect of the left side of the sacrum, as was also evident on the recent CT scan. There is no diastasis of the sacroiliac joint. There are no obvious degenerative changes in the hip joints. Femoral heads and neck are intact. IMPRESSION: Bilateral pelvic fractures as described above, corresponding to what was seen on CT scan of . DATA REPOSITORY: RADIATION DOSE DELIVERED:
[2024-07-15 02:59] VITALS: BP 118/70; PULSE 57; RESP 19; TEMP 37.1; O2SAT 91
[2024-07-15 07:31] VITALS: BP 136/81; PULSE 60; RESP 15; TEMP 37.4; O2SAT 96
[2024-07-15] MEDS: Acetaminophen 500 MG TAB 1000 MG PO ×3 (07:56→19:34)
[2024-07-15] MEDS: oxyCODONE 5 MG TAB PO ×4 (07:56→18:58)
[2024-07-15] MEDS: Famotidine 20 MG TAB PO ×2 (07:57→19:34)
[2024-07-15] MEDS: Ketorolac 15 MG/ML VIAL IVP ×2 (08:01→16:59)
[2024-07-15] MEDS: Enoxaparin 40 MG/0.4 ML SYR SC (08:01)
--- NOTE | 2024-07-15 09:04 | PDOC.CMDIS ---
Date of service: 07/15/24 Time of Service: 09:05 LACE Index Scoring Tool Questions: Length of Stay (in days): 2 Was the patient admitted via the E.D.?: Yes E.D. Visits: 1 Answers: Total Score: 6 Risk of Readmission: Low Risk Care Management Discharge Plan Reason for Hospitalization: fractured pelvis Discharge Plan: Apolinar will be discharged home with no new services. He will follow up with his community providers in [place] and transport via private vehicle with a friend. Patient/Family Education Needs: review of discharge instructions, limitations, follow up plan and discuss Ask Me Three SDOH Health Related Social Needs: Health related social needs housing instability, housed, with risk of homelessness (Z59.811)
[2024-07-15 11:01] VITALS: BP 115/77; PULSE 58; RESP 15; TEMP 37; O2SAT 98
--- NOTE | 2024-07-15 11:46 | PTTR_ITS ---
PT Notes Visit Reasons: Trauma - Pelvic Fractures Physical Therapy Inpatient Treatment Note Date: 07/15/2024 Precautions: Fall. Standard. WBAT on B LE with AD. Subjective: Willing to try get out of bed and walk to bedside chair, distraught about one caregiver to help him get out of bed so MIMA Asencio was recruited in for assistance. Objective: General Observation: Movement highly guarded because of pain in pelvis. Mental Status: Alert and oriented as to person, place, time, and purpose. Able to pay attention, focus, and respond appropriately. Pain: 7-8/10 with supine to sit Vital Signs: Closely monitored by nursing staff Bed Mobility/Transfers: Moderate cueing provided for use of B hands as needed for support, movement sequence, AD management, and posture to reduce fall risk and minimize pain report L side lying to sit minimal assist of 2 due to pain Stand to sit with stand by assist with FWW Bed to chair stand by assist with FWW Gait: Today, patient is more able to minimally plantarflex and slide R foot forward with L foot creeping forward. With L foot suspended/hanging and L knee bent patient is able to minimally hop forward, increasing speed of movement. Covered distance from L side of bed to bedsside chair covering about 15 feet and in the afternoon was able to walk 50 feet from chair to the hallway using his FWW with minimal PF on R side during each step and with L foot mostly non-weight bearing to partial weight bearing, heavy use of B hands due to pain level. Balance: Static Sitting: Good Dynamic Sitting: Fair Static Standing: Fair Dynamic Standing: Fair THERA EX: Encouraged sometric exercises for gluteal and quads muscles prior to both attempts at moving out of bed, 5sh x 10 to minimize muscle guarding Worked on slow posterior pelvic tilting x while in supine to relax B hams ASSESSMENT: Slowly improving gait pattern using FWW. Supine to sit movement transition s till cause pain but once up, patient is able to slowly make his way on level surface. Due to multiple sites of fracture of pelvis on B sides, sacrum and TP of L4 and L5, multiple muscle pulls during movement transitions of roll to supine to sit cause much discomfort. Has trialled multiple techniques with patient which he can use on his own at home to minimize pain relief. Plan of Care/Treatment Plan: 1-2x/day, 7 days/week x 1 week. Plan of care has been reviewed with the LANDSCAPING AND GROUNDSKEEPING LABORER providing the service under Physical Therapy direction. Initiate Physical Therapy intervention for pain management as needed, strengthening, bed mobility, transfers, gait, stairs, balance training, and use of assistive device. --Pre-medicate for pain for all sessions, coordinate with nurse DISCHARGE RECOMMENDATIONS: [] Home with no services [] [] Home with services [specify] [] Home with outpatient PT [] [] SNF for continued rehabilitation [] [] Sea Captain Care [] [] SNF versus LTC based on ability to participate and progress [] [X] Short-term term SNF vs PT based on progress towards goals TREATMENT CODE/TIME: Session 1-- 61740 x 29 minutes for 2 units (11:46-12:15). Session 2--41366 x 15 minutes for 1 unit, 65109 x 15 minutes for 1 unit (16:53-17:23).
--- NOTE | 2024-07-15 13:57 | CHAPLAIN ---
Domo was up in a chair, visiting with a friend when I stopped in. He is here as an ortho patient following a fall while skiing. According to the Care Management notes, Domo went over a bump and then landed on his tailbone causing fractures. Domo was pleasant and inquired about getting ashes today ([place] Saturday). I let him know that Rev. Shahid Galvin will be in to offer ashes in our chapel this afternoon and I'll see if she can go to his room to offer ashes to him.
--- NOTE | 2024-07-15 15:53 | PGE_ITS ---
Date of Service Date of service: 07/15/24 Time of Service: 15:10 Assessment and Plan Assessment and plan (1) Fracture of transverse process of lumbar vertebra: Status: Acute (2) Fracture of sacrum: Status: Acute (3) Bilateral fracture of pubic rami: Status: Acute Assessment and plan: Apolinar is a 64-year-old male who has a significant fracture of his pelvis involving both superior and inferior pubic rami and the left side extending adjacent to the acetabulum, pubic root. There is also a left sacral ala fracture and left-sided L4 and L5 transverse process fractures. Repeated x-rays today do not show any significant change in the position of the fragments and more importantly do not show any diastases of the SI joint, particular on the left side. He has been working with physical therapy and with nursing and is making some progress although still limited in his ability to mobilize. He has utilize pain medication now requiring 10 mg of oxycodone. This seems to be a working regimen. I have continued with the ketorolac IV. He has not use any IV pain medication doses today. We will continue to work with physical therapy. He is making progress and thus I do not think he needs any further intervention. Hopefully will be able to discharge to home within the next few days. (4) Hematoma: Status: Acute Assessment and plan: Recheck on hemoglobin was stable and therefore we will continue to follow this clinically without the need for any further imaging studies at this time. Subjective Subjective Interval history since last seen: Apolinar reports still having significant pain with mobilization. He has made some progress and that he only needs 1 assist but he still requiring assistance in order to mobilize. He is unable to stand on his left side and take a step thus leading him shuffling the right foot. He has been working on some exercises in the chair in the bed and these have not hurt too bad. He is requiring 10 mg of oxycodone to assist with mobilization. Hemoglobin checked yesterday afternoon was stable. He had x-rays this morning. No new symptoms. Voiding spontaneously without any blood. Passing flatus, no BM. When he does have pain, he localizes this to the left side of the sacrum and the left side of the lower lumbar spine. Exam Narrative Exam Narrative: Sitting up in the chair. No acute distress. Alert and orient x 3. Evaluation of both lower extremity shows sensation intact to light touch of the femoral and sciatic nerve distributions. He has no significant pain with passive internal and external rotation of both hips as well as passive flexion of both hips. He is able to demonstrate active hip flexion as well as active motion of the hips although with more pain on the left side and the right side. Most this pain is felt in the medial perineal region. Objective Last Vital Signs Temp 37 C 07/15/24 11:01 Pulse 58 L 07/15/24 11:01 Resp 15 07/15/24 11:01 BP 115/77 07/15/24 11:01 Pulse Ox 98 07/15/24 11:01 Laboratory Results - last 24 hr 07/14/24 15:55 Hgb 12.1 L Hct 37.0 L Objective Narrative Objective Narrative: X-ray of the pelvis was performed this morning and reviewed. This shows the previously mentioned fractures. There is some mild diastases of the fracture of the left superior pubic ramus extending to the root adjacent to the acetabulum. However, no involvement of the acetabulum itself. No apparent posterior anterior column involvement. The sacral fracture is difficult to appreciate although on the left external oblique image it is seen at the superior aspect of the lateral third of the sacrum. PAWSS Have you Been Recently Intoxicated or Drunk Within the Last 30 days?: No Have you Ever Experienced Previous Episodes of Alcohol Withdrawal?: No Have you ever Experienced Withdrawal Seizures?: No Have you ever Experienced Delirium Tremens(DT)s?: No Have you ever undergone Alcohol Rehabilitation Treatment (i.e, inpt ot outpatient treatment programs)?: No Have you ever Experienced Blackouts?: No Have you ever Combined Alcohol with other Downers within the last 90 days?: No Have you ever Combined Alcohol with any other Substance of Abuse during the last 90 days?: No Positive Blood Alcohol level on Presentation? [PCS.BAL]: No Evidence of Increased Autonomic Activity (i.e. HR>120, tremor, sweating, agit ation, nausea)?: No Result: 0 Time Spent with Patient Time Spent with Patient: 25-34 minutes Time was spent: preparing to see the patient(eg.review tests), obtaining and/or reviewing separately otained hiistory, ordering medications,tests, procedures and counseling the patient
[2024-07-15 15:54] VITALS: BP 132/83; PULSE 57; RESP 15; TEMP 36.8; O2SAT 100
--- NOTE | 2024-07-15 16:14 | PDOC.CMPRO ---
Date of service: 07/15/24 Time of Service: 16:14 Care Management Progress Note Progress Note Text Progress Note Text: Apolinar was sitting up in a chair when CM met with him. He remains in good spirits and has been able to work with PT. While he is making progress, he is unable to get up on his own and cannot stand on his left side and take a step. His pain is controlled with Oxycodone and scheduled IV Ketorolac. Repeat xrays done this morning indicate that his fractures are stable. Per Dr. Dangelo, Apolinar will likely be ready for discharge sometime within the next few days. He is working on completing the necessary paperwork for FMLA and short term disability. Discharge Potential Discharge Needs: Surgical F/U Appt Anticipated Barriers to Discharge: Medical Status Patient/Family Education Needs: Review discharge instructions, discuss Ask Me Three Transportation: Private vehicle Plan: Anticipate Apolinar will be discharged home, possibly with with new home health services for PT. He will follow up with his community providers and transport via private vehicle with a friend. CM will follow and assess for discharge needs. Social Determinants of Health Screening Social Determinants of Health last assessed: 07/15/24 Will the Patient Participate in the Screening?: Yes Do you worry about having a steady place to live?: no Problems where you live: no known problems In the past 12 months, have you had to go without electric, gas, oil or water in your home?: no Have you or anyone in your house had to go without enough food to eat?: no Has lack of transportation kept you from medical appointments or from doing things needed for daily living?: no Has anyone in your life made you feel unsafe or unsupported?: no How hard is it for you to pay for the very basics like food, housing, medical care, and heating? Would you say it is:: Not hard at all Do you want help finding or keeping work or a job?: I do not need or want help If for any reason you need help with day-to-day activities such as bathing, preparing meals, shopping, managing finances, etc., do you get the help you need?: I don?t need any help How often do you feel lonely or isolated from those around you?: Never Do you speak a language other than [place] at home?: No Does the patient want assistance with any of the above?: No Health Related Social Needs Health related social needs: housing instability, housed, with risk of homelessness (Z59.811)
[2024-07-15] MEDS: Docusate Sodium 100 MG CAP PO (18:58)
[2024-07-15] MEDS: Losartan 25 MG TAB PO (19:35)
[2024-07-15] MEDS: Atorvastatin 20 MG TAB PO (19:35)
[2024-07-15] MEDS: Aspirin 81 MG CHEW PO (19:35)
[2024-07-15] MEDS: Normal Saline Flush 10 ML SYR IVP (19:36)
[2024-07-15] MEDS: Montelukast 10 MG TAB PO (19:36)
[2024-07-15 20:23] VITALS: BP 123/79; PULSE 59; RESP 20; TEMP 36.8; O2SAT 100
[2024-07-15 22:39] VITALS: BP 119/68; PULSE 61; RESP 22; TEMP 36.4; O2SAT 98
[2024-07-16] MEDS: Ketorolac 15 MG/ML VIAL IVP ×3 (00:21→15:55)
[2024-07-16 07:07] LABS: HCT 34.8 % (40.0-50.0); HGB 11.8 g/dL (13.5-17.5); MCH 31.8 pg (27.0-33.0); MCHC 33.9 % (32.0-36.0); MCV 94 fL (80-95); MPV 10.1 fL (8.0-11.0); Platelet Count 193 10^3/uL (130-400); RBC 3.71 10^6/uL (4.36-5.78); RDW 12.9 % (11.8-14.1); RDW-SD 44.3 fL; WBC 6.84 10^3/uL (4.4-10.8)
[2024-07-16 07:19] LABS: Anion Gap 7.9 mmol/L (3-11); BUN 14 mg/dL (7-18); CO2 29.1 mmol/L (21.0-32.0); CREATININE 0.9 mg/dL (0.70-1.30); Calcium 8.3 mg/dL (8.5-10.1); Chloride 105 mmol/L (98-107); Estimated GFR 96.57 (mL/min/1.73m2); Glucose 99 mg/dL (74-106); Potassium 3.7 mmol/L (3.5-5.1); Sodium 142 mmol/L (136-145)
[2024-07-16] MEDS: Acetaminophen 500 MG TAB 1000 MG PO ×2 (08:13→14:36)
[2024-07-16] MEDS: Docusate Sodium 100 MG CAP PO (08:13)
[2024-07-16] MEDS: Famotidine 20 MG TAB PO (08:13)
[2024-07-16] MEDS: Enoxaparin 40 MG/0.4 ML SYR SC (08:13)
[2024-07-16] MEDS: oxyCODONE 5 MG TAB PO ×3 (08:13→15:55)
[2024-07-16 08:14] VITALS: BP 129/82; PULSE 67; RESP 16; TEMP 36.8; O2SAT 95
--- NOTE | 2024-07-16 09:42 | PDOC.CMPRO ---
Date of service: 07/16/24 Time of Service: 09:42 Care Management Progress Note Discharge Potential Discharge Needs: PCP F/U Appt Anticipated Barriers to Discharge: None Identified Patient/Family Education Needs: Review discharge instructions, discuss Ask Me Three Transportation: Private vehicle Plan: Anticipate Apolinar will be discharged home, possibly with with new home health services for P, when medically cleared. He will follow up with his community providers and transport via private vehicle with a friend. CM will follow and assess for discharge needs. Social Determinants of Health Screening Social Determinants of Health last assessed: 07/16/24 Will the Patient Participate in the Screening?: Yes Do you worry about having a steady place to live?: no Problems where you live: no known problems In the past 12 months, have you had to go without electric, gas, oil or water in your home?: no Have you or anyone in your house had to go without enough food to eat?: no Has lack of transportation kept you from medical appointments or from doing things needed for daily living?: no Has anyone in your life made you feel unsafe or unsupported?: no How hard is it for you to pay for the very basics like food, housing, medical care, and heating? Would you say it is:: Not hard at all Do you want help finding or keeping work or a job?: I do not need or want help If for any reason you need help with day-to-day activities such as bathing, preparing meals, shopping, managing finances, etc., do you get the help you need?: I don?t need any help How often do you feel lonely or isolated from those around you?: Never Do you speak a language other than Haitian at home?: No Does the patient want assistance with any of the above?: No Health Related Social Needs Health related social needs: housing instability, housed, with risk of homelessness (Z59.811)
[2024-07-16 11:26] VITALS: BP 128/86; PULSE 75; RESP 18; TEMP 36.7; O2SAT 98
--- NOTE | 2024-07-16 12:19 | W.NUTRFU ---
Date of service: 07/16/24 Time of Service: 12:19 Nutrition Note NOTE: Domo is a surgical pt being treated for fxr of TP of lumbar vertibra and fxr of sacrum. He is tolerating a regular diet with fair-good intake. His current BMI suggestes class I obesity. Labs look good - slightly low Calcium - would suggest vitamin D lab and supplement to benefit bone health and good chance he is low as not taken at home and the time of year/geographical location and pt without regular natural light exposure. Time Spent in Nutritional Counseling and Treatment: 5
--- NOTE | 2024-07-16 13:08 | W.PM.DS.N ---
Date of service: 07/16/24 Time of Service: 12:30 DS: Diagnosis Discharge Diagnosis (1) Fracture of transverse process of lumbar vertebra: Status: Acute (2) Fracture of sacrum: Status: Acute (3) Bilateral fracture of pubic rami: Status: Acute Discharge Plan Disposition Patient Disposition: Home Condition: Improving Discharge Details Reason For Visit: Trauma - Pelvic Fractures Admit Date/Time: 07/13/24 21:40 Admit Provider: Alex Dangelo Attending Provider: Alex Dangelo Primary Care Provider: NanBryce Hospital Course Hospital Course: Domo is a 64-year-old male who was skiing and suffered a fall landing on his pelvis which resulted in multiple fractures about his pelvis, sacrum, lower lumbar spine. He was seen in the emergency department and then admitted for close monitoring, mobilization with physical therapy. He was noted to have a hematoma within the pelvic space adjacent to the bladder, however, he was able to urinate without difficulty. Serial hemoglobin check showed stability with his hemoglobin and he remained stable with vital signs. Pain medication regimen was obtained utilizing both intravenous and oral medications to allow him to start mobilizing. He was able to progress with his mobilization such that he was able to be discharged to home with a oral pain regimen. Home Meds and New Rx's Prescriptions: New celecoxib 200 mg capsule 200 mg PO BID PRN (Reason: pain) Qty: 60 1RF aspirin 81 mg tablet,delayed release (DR/EC) 81 mg PO BID Qty: 60 0RF acetaminophen 500 mg tablet 1,000 mg PO Q8H PRN (Reason: pain) Qty: 90 3RF oxycodone 10 mg tablet 10 mg PO Q4H PRNQty: 30 0RF polyethylene glycol 3350 17 gram/dose powder 17 g PO BID Qty: 238 0RF Rx Instructions: Start with 17 grams twice daily and then increase by 17grams per dose until desired effect. docusate sodium [Colace] 100 mg capsule 100 mg PO BID PRNQty: 10 0RF Continued flecainide 50 mg PO BID losartan 25 mg PO HS montelukast 10 mg PO HS atorvastatin 20 mg tablet 20 mg PO QHS famotidine [Pepcid] 20 mg tablet 20 mg PO BID Discontinued aspirin 81 mg capsule 81 mg PO HS Discharge Instructions Additional Instructions: Fracture Discharge Instructions Activity: The most important activity is to keep the legs moving. Continue to work on mobilizing within the home. Ambulate with an assistive device. Medications: - You should take Tylenol and an anti-inflammatory Celebrex as your primary pain control medications. If the Celebrex is too expensive or not covered, please call the office for another alternative (Advil/Ibuprofen or Naproxen/Aleve). - You have been prescribed a stronger pain medication Oxycodone for breakthrough pain, take as needed as prescribed. - You will be taking Aspirin 81mg twice a day for DVT prevention unless instructed otherwise. -Because you are taking the pain medication and you have the trauma, you are going to have constipation. It is normal for her to take 3 to 6 days for having a bowel movement. As long as you are passing gas there is nothing to be terribly concerned about. I would recommend that we start with taking MiraLAX 17 g twice daily along with docusate sodium. If this does not help then I would increase from 17 g to 34 g twice daily on day #2. If this also does not help then on day #3 we will add lactulose 20 mg 3 times daily as needed. Please call Dr. Dangelo to discuss. Follow-up: 1-2 weeks with orthopaedics If you have any acute concerns or questions, please do not hesitate to contact the office at [phone]. You may contact Dr. Dangelo with any questions after hours through the hospital at [phone] or on his cell phone at [phone] or email at [email or web address]. Referrals: Alex Dangelo MD [ [facility] STAFF PHYSICIAN] - Activity:: Assisted weightbearing Equipment/Supplies:: Walker Diet:: As Tolerated Discharge Orders Discharge Orders: Discharge Order (Routine); Ordered 07/16/24 Ordered By: Alex Dangelo DS: Summary Time Spent with Patient providing and/or coordinating discharge services: Greater than 30 minutes Status at Discharge Functional status at discharge: uses cane/walker Overall status at discharge: patient is progressing back to baseline Mental Status: mental status grossly normal Speech and Movement: speech and movement normal Mood: congruent mood Affect: normal affect Quality:SDOH Health Related Social Needs: Health related social needs housing instability, housed, with risk of homelessness (Z59.811) Exam Narrative Exam Narrative: Sitting up in the chair. NAD. AAOx3. Able to rise and stand. No pain with passive ER/IR/Flex of bilateral hips. SILT Fem/Sciatic distributions. Psych Mental Status: mental status grossly normal Speech and Movement: speech and movement normal Mood: congruent mood Affect: normal affect DS: Data Vitals/I&O Vitals and I&O: Vital Signs Temperature 37.1 C 07/15/24 02:59 Temperature Source Tympanic 07/15/24 02:59 Pulse 57 L 07/15/24 02:59 Pulse Rhythm Regular 07/14/24 00:18 Respiratory Rate 19 07/15/24 02:59 Respiratory Effort Normal 07/14/24 00:18 Respiratory Depth Normal 07/14/24 00:18 Respiratory Pattern Normal 07/14/24 00:18 Blood Pressure 118/70 07/15/24 02:59 Blood Pressure Mean 94 07/13/24 22:15 Blood Pressure Position Sitting 07/13/24 17:04 Pulse Oximetry 91 L 07/15/24 02:59 Oxygen Delivery Method Room Air 07/15/24 02:59 Oxygen Flow Rate 0 07/15/24 02:59 Pain Level 5 07/14/24 23:46 Comment Re check on BP per RN 07/14/24 12:16 Intake & Output 07/14/24 07/14/24 07/15/24 11:59 23:59 11:59 Intake Total 1000 / 1000 Output Total 800 / 1600 800 / 1600 300 / 300 Balance 200 / -600 -800 / -600 -300 / -300 Weight 96.6 kg Intake: IV 1000 / 1000 Output: Urine 800 / 1600 800 / 1600 300 / 300 Other: Urine Color Light Jenny Yellow Urine Appearance Clear Clear Urine Odor Normal Normal Data Completed and Pending Labs on day of discharge: Labs from last 24 hours 07/14/24 07/14/24 15:55 06:35 WBC 8.63 RBC 3.69 L Hgb 12.1 L 11.5 L D Hct 37.0 L 34.9 L MCV 95 MCH 31.2 MCHC 33.0 RDW 12.9 Plt Count 192 MPV 10.0 Sodium 142 Potassium 3.6 Chloride 106 Carbon Dioxide 26.4 Anion Gap 9.6 BUN 13 Creatinine 1.0 Est GFR (CKD-EPI 2020) 85.10 Glucose 158 H Calcium 7.9 L PFSH All Active Problems Fracture of transverse process of lumbar vertebra (Acute) Left L4, L5 Fracture of sacrum (Acute) Bilateral fracture of pubic rami (Acute) Hematoma (Acute) Closed fracture of transverse process of lumbar vertebra (Acute) Multiple pelvic fractures (Acute) Medical History GERD (gastroesophageal reflux disease) Hyperlipidemia Atrial fibrillation Social History Smoking/Tobacco Use Status: Never Smoking risk assessment performed?: Yes Alcohol Intake: current Alcohol Intake frequency: a few times a month Drug use: Never Substance use type: does not use Housing: house Do you feel safe at home: Yes Do you feel safe in your relationship?: Yes Time Spent with Patient Time Spent with Patient: 45-69 minutes Time was spent: preparing to see the patient(eg.review tests), obtaining and/or reviewing separately otained hiistory, ordering medications,tests, procedures, counseling the patient and care coordination
--- NOTE | 2024-07-16 13:23 | PT.INTREAT ---
PT Notes Visit Reasons: Trauma - Pelvic Fractures Date: 07/16/2024 PRECAUTIONS: Fall. Standard. WBAT on B LE with AD. SUBJECTIVE: Pt in bed when approached for therapy this morning, pt agreed to participating with therapy after the pains meds have taken effect. Pt approached for a 2nd session in the afternoon to trial the stairs in preparation for getting DC. OBJECTIVE: ? PAIN: 5/10 pre med, 07/20 post med VITALS: Monitored by nursing ? Therapeutic Activities 49122: Direct one-on-one instruction in dynamic activities to improve functional performance. ?? BED MOBILITY/TRANSFERS? Rolling L/R: min A (am)/ supervision (pm) Supine-sit: ?min A? (am)/ supervision (pm)? Sit-supine: ?min A ?(am)/ min A (pm) ? Sit-stand: ? CGA (am)/ Independent (pm)? Stand-sit: ?CGA (am)/ Independent (pm)? Bed-Chair:? CGA (am)/ Independent (pm)? Chair-bed: CGA (am)/ Independent (pm) Chair-commode: SBA (am)/ Independent (pm) Commode-chair: SBA (am)/ Independent (pm) Provided skilled cues and instruction on performance and technique throughout. Gait Training 55417: Direct one-on-one instruction and skilled instruction in: Employing an assistive device Modified weight-bearing status Movement sequencing Turning and movement with proper form Provided verbal cues for equipment management and technique Provided instruction in gait pattern Patient education regarding pacing and breathing techniques to maximize activity tolerance? GAIT? Assistive Device: ?? ? FWW? Weight bearing: WBAT Assist: ? SBA? Distance:?? ?10'x6 am, 30'x3 pm? Deviation: ? antalgic gait? STAIRS:? 1 handrail step to going sideways to replicate stairs at home 6 step x4 up and down CGA, caregiver education on positioning and strategies to make transition safe and efficient. ? Therapeutic Exercises 86394: Direct one-on-one instruction in therapeutic exercises to develop strength, endurance, range of motion and flexibility. Exercises Standing heel raise [id number] Standing TRA activation, standing glute sets Sit to stand [id number] transfer training going from WC to recliner, recliner to EOB vice versa Provided skilled instruction in proper exercise performance Provided skilled manual cues to facilitate proper muscle recruitment and/or form: Neuromuscular Re-education 82735: Activities that facilitate re-education of movement balance, posture, coordination, and proprioception or kinesthetic sense, requiring skilled tactile and verbal cues Exercises/techniques: ? Static standing weight shifting L/R Frontback Dynamic standing doing heel raises, toe raises Seated knee flexion extension Seated ankle pumps, circles ? ASSESSMENT:?Pt showing improve tolerance with activity, less anxious with transfers going from EOB to chair, Leg internet ecommerce specialist for assistance with transition from EOB to supine. PLAN: Continue with balance training, global strengthening and general conditioning for improved safety, mobility and activity tolerance until pt is ready for DC. TREATMENT CODE/TIME: 81851x0, 11088n6 30mins (9:25-9:55am) 19863n2, 80311n9 (1:30-2:15pm)
[2024-07-16 15:48] VITALS: BP 122/68; PULSE 68; RESP 18; TEMP 36.8; O2SAT 99
--- NOTE | 2024-07-16 16:28 | CMDISCH_ITS ---
Date of service: 07/16/24 Time of Service: 16:28 LACE Index Scoring Tool Questions: Length of Stay (in days): 3 Was the patient admitted via the E.D.?: Yes E.D. Visits: 1 Answers: Total Score: 7 Risk of Readmission: Low Risk Care Management Discharge Plan Reason for Hospitalization: fractured pelvis Discharge Plan: Apolinar will be discharged home with no new services. He will follow up with his community providers and transport back to [place] via private vehicle with a friend. Patient/Family Education Needs: Review discharge instructions, discuss Ask Me Three SDOH Health Related Social Needs: Health related social needs housing instability, house d, with risk of homelessness (Z59.811)
== END 2024-07-16 16:46 | disposition home or self-care (01) | DRG 552 ==
LOC: ER 18:20 → MS 22:41
PROVIDERS: Admitting Provider Student in an Organized Health Care Education/Training Program; Emergency Provider Nurse Practitioner Family; Visit Provider Student in an Organized Health Care Education/Training Program
DX: S32.19XA Other fracture of sacrum, initial encounter for closed fracture (principal); S32.591A Other specified fracture of right pubis, initial encounter for closed fracture; S32.048A Other fracture of fourth lumbar vertebra, initial encounter for closed fracture; S32.058A Other fracture of fifth lumbar vertebra, initial encounter for closed fracture; S32.512A Fracture of superior rim of left pubis, initial encounter for closed fracture; S32.511A Fracture of superior rim of right pubis, initial encounter for closed fracture; S32.592A Other specified fracture of left pubis, initial encounter for closed fracture; S30.0XXA Contusion of lower back and pelvis, initial encounter; W19.XXXA Unspecified fall, initial encounter; I48.91 Unspecified atrial fibrillation; E78.5 Hyperlipidemia, unspecified; K21.9 Gastro-esophageal reflux disease without esophagitis; Z79.899 Other long term (current) drug therapy; Y93.23 Activity, snow (alpine) (downhill) skiing, snowboarding, sledding, tobogganing and snow tubing
CPT/HCPCS: 00123; 36415; 74177; 80048; 80053; 85027; 96361; 96374; 97110; 97112; 97162; 97530; 99285; J1650; 71260; 72190; 81003; 85014; 85018; J1885; J3010; J3490